=== PATIENT | female | born 1975 | race Caucasian/White ===

== ENCOUNTER → 2019-03-09 | Outpatient (CLI) | payer OTHER ==
[~2019-03-09] MED LIST: ALPR0.25 PO; ASPI-999 PO; CHLO500T2 PO; CLOP75TA28 PO; CYCL5TAB11; DIVA125T2 PO; DULO20CA; Divalproex Sodium PO; FERR-54 PO; HYDR1TAB75 PO; IBP800T PO; IRON PILL PO; LAMO150T3 PO; NAPR-1070 PO; NAPR-1071 PO; NF-ACI30T PO; OXYC-109; OXYC1TAB87 PO; PREN1TAB39 PO; TRM50T; VENL50TA PO
--- NOTE | 2019-03-09 15:22 | Diagnostic Imaging Report ---
INDICATION: Fall with right shoulder pain. Time of exam 2:46 p.m. FINDINGS: Three views right shoulder were obtained. Glenohumeral and acromioclavicular alignment are normal. Acromiohumeral space is within normal limits. No fracture or dislocation is identified. IMPRESSION: No acute bony abnormality is detected. Dictated by: Dictated on workstation # [id number]
== END ==
LOC: RAD 14:27
PROVIDERS: ATTEND Nurse Practitioner Primary Care
DX: S49.91XA Unspecified injury of right shoulder and upper arm, initial encounter (principal); W10.2XXA Fall (on)(from) incline, initial encounter
CPT/HCPCS: 73030

== ENCOUNTER → 2019-05-12 | Outpatient (CLI) | payer BC, MEDICAID ==
--- NOTE | 2019-05-12 12:03 | Diagnostic Imaging Report ---
INDICATION: Routine screening. COMPARISON is made with prior mammogram from 02/05/2014. 2-D and 3-D bilateral screening mammography was performed with CAD. Both breasts are heterogeneously dense, limiting the sensitivity of mammography. The parenchymal pattern is stable. No mass or malignant-appearing microcalcifications are seen. Axillae are unremarkable. IMPRESSION: BI-RADS Category 1 No mammographic features suspicious for malignancy are identified. Dictated by: Dictated on workstation # [id number]
== END ==
LOC: RAD 09:43
PROVIDERS: ATTEND Obstetrics & Gynecology
DX: Z12.31 Encounter for screening mammogram for malignant neoplasm of breast (principal)
CPT/HCPCS: 77067

== ENCOUNTER 2023-02-08 12:47 | Emergency (ER) | payer BC ==
[~2023-02-08] VITALS: Ht 155.4 cm; Wt 76.2 kg
[2023-02-08] MEDS ORDERED: KETOROLAC INJ 60 MG/2 ML VIAL IM STA (13:28)
[2023-02-08] MEDS ORDERED: ORPHENADRINE 60 MG/2 ML AMP (ED ONLY) IM STA (13:28)
[2023-02-08] MEDS ORDERED: oxyCODONE/ACETAMINOPHEN 5/325MG TABLET PO ONE (13:30)
--- NOTE | 2023-02-08 13:34 | ED Back Pain ---
General Chief Complaint: Back Problems Stated Complaint: BACK PAIN Nursing Triage Note: Patient states that she has had back pain since yesterday. Patient describes the pain as cramping in nature and it comes and goes. Patient hasn't taken anything for pain. Source of Information: Patient Exam Limitations: No Limitations History of Present Illness Date Seen by Provider: Feb 08, 2023 Time Seen by Provider: 13:21 Initial Comments Here with report of onset of low back pain yesterday with spasms on the right side and radiation to the buttock right greater than left. She has not taken anything for the pain. Does not remember a specific injury but last week and was moving a pool cover and felt a strain. Couple days ago on Wednesday night, patient was sitting in bleachers for several hours and then the pain started yesterday. Denies numbness between her legs, bowel or bladder incontinence, weakness of one leg or the other or other problems. Has not had pain like this before. Reports pain is better when she is sitting with legs flexed Timing/Duration: 1-2 Days Severity: Moderate Pain/Injury Location: Back Radiation: Buttocks Method of Injury: Unknown Modifying Factors: Worse With Movement Associated Symptoms: muscle spasms; No weakness, No numbness in legs/feet; lower back pain; No loss of bladder control, No loss of bowel control Allergies and Home Medications Allergies Coded Allergies: acetaminophen (Verified Allergy, Mild, 06/07/09) hydrocodone (Verified Allergy, Mild, 06/07/09) Neuromuscular Blockers, Steroidal (Unverified Allergy, Unknown, 03/19/14) anaphylaxis triamcinolone (Verified Allergy, Unknown, ANAPHYLAXIS, 10/17/15) Patient Home Medication List Home Medication List Reviewed: Yes Aspirin (Aspirin) 81 Mg Tab.chew, 81 MG PO, (Reported) Entered as Reported by: ALYSA MASTERSON on 03/20/15 0127 Naproxen (Naprosyn) 500 Mg Tablet, 500 MG PO BID PRN for PAIN Prescribed by: FORD JESUS on 10/17/15 1315 Naproxen Sodium (Anaprox Ds) 550 Mg Tablet, 550 MG PO BID Prescribed by: FRANKLIN TERAN on 12/27/15 1208 Oxycodone HCl/Acetaminophen (Percocet 5-325 mg Tablet) 1 Each Tablet, 1 EACH PO Q6H PRN for PAIN Prescribed by: FORD JESUS on 10/17/15 1315 Oxycodone HCl/Acetaminophen (Percocet 5-325 mg Tablet) 1 Each Tablet, 1-2 EACH PO Q4H PRN for PAIN Prescribed by: FRANKLIN TERAN on 12/27/15 1208 Rabeprazole Sodium (Aciphex) 20 Mg Tablet.dr, 20 MG PO DAILY Prescribed by: ALEX GROSSMAN on 03/21/15 1137 [Iron Pill] , 1 TAB PO DAILY, (Reported) Entered as Reported by: JONATHAN VASQUEZ on 03/21/15 0910 Review of Systems Constitutional: see HPI; No chills, No fever Cardiovascular: no symptoms reported Gastrointestinal: no symptoms reported Genitourinary: No incontinence Musculoskeletal: back pain, muscle pain, muscle stiffness Psychiatric/Neurological: Tingling (Buttocks bilateral) Past Gpunnhi-Vizawy-Yypwvw Hx Patient Social History Tobacco Use?: No Substance use?: No Alcohol Use?: No Pt feels they are or have been: No Immunizations Up To Date Tetanus Booster (TDap): Unknown Seasonal Allergies Seasonal Allergies: No Past Medical History Surgery/Hospitalization HX: Cardiac Cardiac Reproductive Disorders: No Sexually Transmitted Disease: No Anxiety, Depression Adverse Reaction/Blood Tranf: No Family Medical History Reviewed Nursing Family Hx Cardiovascular disease PATERNAL GRANDMOTHER MATERNAL GRANDMOTHER MATERNAL GRANDFATHER Diabetes mellitus PATERNAL GRANDMOTHER MATERNAL GRANDMOTHER MATERNAL GRANDFATHER PATERNAL GRANDFATHER FH: breast cancer MATERNAL GRANDMOTHER AUNT AUNT FH: cancer PATERNAL GRANDMOTHER FH: thyroid cancer AUNT Prostate cancer MATERNAL GRANDFATHER PATERNAL GRANDFATHER Physical Exam Vital Signs Vital Signs - First Documented 02/08/23 12:52 Pulse 86 Resp 20 B/P (MAP) 112/63 (79) Pulse Ox 99 O2 Delivery Room Air Capillary Refill : Less Than 3 Seconds Height, Weight, BMI Height: 5'10" Weight: 160lbs. oz. [id number]; 31.00 BMI Method:Estimated General Appearance: WD/WN, Mild Distress Cardiovascular: Regular Rate, Rhythm, No Murmur Respiratory: Lungs Clear, Normal Breath Sounds Back: No Vertebral Tenderness, Decreased Range of Motion, Muscle Spasm (Right paraspinous muscles in the lumbar area), Other (Tenderness to the right greater than left SI joint) Extremity: Normal Range of Motion, Non Tender Neurologic/Psychiatric: Alert, Oriented x3 Skin: Normal Color, Warm/Dry Progress/Results/Core Measures Results/Orders My Orders Orders - ENRIQUETA DNAIEL MD Ketorolac Injection (Ketorolac Injection (02/08/23 13:28) Orphenadrine Inj (Ed Only) (Orphenadrine (02/08/23 13:28) Oxycodone/Apap 5/325mg Tablet (Oxycodon (02/08/23 13:30) Medications Given in ED Current Medications Medications Dose Ordered Sig/Jose Route Start Time Stop Time Status Last Admin Dose Admin Oxycodone/ Acetaminophen 1 tab ONCE ONCE PO 02/08/23 13:30 02/08/23 13:33 DC 02/08/23 13:47 1 TAB Vital Signs/I&O 02/08/23 12:52 Pulse 86 Resp 20 B/P (MAP) 112/63 (79) Pulse Ox 99 O2 Delivery Room Air Blood Pressure Mean: 79 Progress Progress Note : Progress Note Seen and evaluated. Toradol 60 mg IM, Norflex 60 mg IM and Percocet 5/325 1 tab p.o. ordered. We will see how she does for pain and then determine next phase as needed. This was discussed with patient and family who agree. Monitor patient. 1436: Patient is able to stand and walk a few steps without much difficulty. She is having a little bit of itching after the narcotic but otherwise is tolerating it well. At this point I think she is safe for discharge. We did discuss imaging and we will hold on that at this point including CT or x-ray as there is no recent significant trauma. She will follow-up with her primary care provider. Discharged home with return precautions. Patient verbalized understanding of instructions and agreement with plan. Departure Impression Primary Impression: Sciatica, right side Disposition: 01 HOME, SELF-CARE Condition: Improved Departure-Patient Inst. Decision time for Depature: 14:38 Referrals: [facility] (PCP/Family) Primary Care Physician Patient Instructions: Sciatica (DC), Radiculopathy (DC) Add. Discharge Instructions: All discharge instructions reviewed with patient and/or family. Voiced under standing. You may take ibuprofen 600 mg every 8 hours as needed for pain. You may also take Tylenol/acetaminophen 1000 mg every 6 hours as needed for pain. You may use [id number] Icy Hot with lidocaine patches or cream, Aspercreme with lidocaine patches or cream, Salonpas with lidocaine patches or cream or similar items to area of concern per package directions. Return for worse pain, expanding numbness, weakness of one leg or the other, difficulty with walking or going to the bathroom, fevers or other concerns as needed. Scripts Prednisone (Prednisone) 20 Mg Tab 40 MG PO DAILY, #14 TAB 0 Refills Prov: ENRIQUETA DANIEL MD 02/08/23 ENRIQUETA DANIEL MD Feb 08, 2023 13:34
[2023-02-08] MEDS ORDERED: PRD20T PO ×2 (14:39→14:51)
[2023-02-08 14:41] VITALS: BP 108/62
== END 2023-02-08 14:41 | disposition home or self-care (01) ==
LOC: EDUNIT# 12:47 → ER 12:48
DX: M54.41 Lumbago with sciatica, right side (principal)
CPT/HCPCS: 99284